=== PATIENT | male | born 2000 | race African-American/Black ===

== ENCOUNTER 2020-10-19 13:19 | Emergency (ER) | payer MEDICAID ==
[~2020-10-19] VITALS: Ht 182.9 cm; Wt 79.5 kg
[2020-10-19] MEDS ORDERED: CEFTRIAXONE SODIUM 500 MG/VIAL IM ONE (13:45)
[2020-10-19] MEDS ORDERED: DOXYCYCLINE HYCLATE 100MG CAPSULE PO ONE (13:45)
[2020-10-19] MEDS ORDERED: DOXY100C42 MT (13:53)
[2020-10-19 14:17] VITALS: BP 120/78
[2020-10-22 16:39] LABS: NEISSERIA GONORRHOEAE NAA Positive (Negative)
== END 2020-10-19 14:17 | disposition home or self-care (01) ==
LOC: ER 13:19
DX: Z20.2 Contact with and (suspected) exposure to infections with a predominantly sexual mode of transmission (principal)
CPT/HCPCS: 87491; 87591; 96372; 99283; J0696

== ENCOUNTER 2020-12-23 14:03 | Emergency (ER) | payer MEDICAID ==
[~2020-12-23] VITALS: Ht 185.4 cm; Wt 77.0 kg
[~2020-12-23 14:03] MED LIST: DOXY100C42 MT
[2020-12-23] MEDS ORDERED: AZITHROMYCIN 500 MG TABLET PO ONE (15:15)
[2020-12-23] MEDS ORDERED: CEFTRIAXONE SODIUM 500 MG/VIAL IM ONE (15:15)
[2020-12-23 15:28] LABS: CLARITY URINE CLEAR (CLEAR); COLOR URINE YELLOW (YELLOW); KETONES URINE TRACE (NEGATIVE); LEUKOCYTE ESTERASE URINE 3+ (NEGATIVE); NITRITE URINE NEGATIVE (NEGATIVE); OCCULT BLOOD URINE TRACE (NEGATIVE); PROTEIN URINE NEGATIVE (NEGATIVE); SPECIFIC GRAVITY URINE 1.015 (1.005-1.030)
[2020-12-23 16:20] VITALS: BP 106/81
[2020-12-26 04:13] LABS: NEISSERIA GONORRHOEAE NAA Positive (Negative)
== END 2020-12-23 16:20 | disposition home or self-care (01) ==
LOC: ER 14:03
DX: A54.09 Other gonococcal infection of lower genitourinary tract (principal)
CPT/HCPCS: 81003; 87077; 87086; 87491; 87591; 96372; 99283; J0696

== ENCOUNTER 2021-01-26 19:06 | Emergency (ER) | payer MEDICAID, OTHER ==
[~2021-01-26] VITALS: Ht 185.4 cm; Wt 74.0 kg
[2021-01-26 20:38] VITALS: BP 122/104
[2021-01-26] MEDS ORDERED: ONDANSETRON 4MG ODT PO NR (21:15)
[2021-01-26] MEDS ORDERED: AZITHROMYCIN 500 MG TABLET PO ONE (21:15)
[2021-01-26] MEDS ORDERED: CEFTRIAXONE SODIUM 500 MG/VIAL IM ONE (21:15)
== END 2021-01-27 05:27 | disposition home or self-care (01) ==
LOC: ER 19:06
DX: Z20.2 Contact with and (suspected) exposure to infections with a predominantly sexual mode of transmission (principal)
CPT/HCPCS: 96372; 99283; J0696

== ENCOUNTER 2021-02-01 22:00 | Emergency (ER) | payer OTHER ==
[~2021-02-01] VITALS: Ht 172.7 cm; Wt 76.0 kg
[2021-02-01] MEDS ORDERED: NALOXONE HCL 0.4 MG/ML 1ML VIAL IM ONE (22:30)
[2021-02-01] MEDS ORDERED: NALO4SPR BOTHNSTRLS (22:48)
[2021-02-02 01:40] VITALS: BP 120/74
== END 2021-02-02 01:40 | disposition home or self-care (01) ==
LOC: ER 22:00
DX: G93.40 Encephalopathy, unspecified (principal); T40.601A Poisoning by unspecified narcotics, accidental (unintentional), initial encounter; F11.10 Opioid abuse, uncomplicated; Y92.9 Unspecified place or not applicable
CPT/HCPCS: 96372; 99283; J2310